=== PATIENT | female | born 1960 | race Caucasian/White ===

== ENCOUNTER 2018-01-24 07:25 | Inpatient (IN) | payer OTHER ==
[~2018-01-24] VITALS: Ht 167.6 cm; Wt 95.7 kg
[~2018-01-24 07:25] MED LIST: LEVO125T PO; LEVO75TA7 PO; LIP10 PO; LORA-258 PO; MELO15TA13 PO; OLAN10TA3 PO; VILA10TA PO; VILA20TA PO
[2018-01-24] MEDS ORDERED: CELECOXIB 200 MG CAPSULE ONE (07:37)
[2018-01-24] MEDS ORDERED: GABAPENTIN 300 MG CAPSULE ONE (07:37)
[2018-01-24] MEDS ORDERED: ACETAMINOPHEN 500 MG TABLET ONE (07:39)
[2018-01-24] MEDS ORDERED: oxyCODONE HCL 10 MG TAB.ER.12H PO ONE ×2 (07:40→07:45)
[2018-01-24] MEDS ORDERED: CELECOXIB 200 MG CAPSULE PO ONE (07:45)
[2018-01-24] MEDS ORDERED: COMMUNICATION ORDER XX ONE (07:45)
[2018-01-24] MEDS ORDERED: GABAPENTIN 300 MG CAPSULE PO ONE (07:45)
[2018-01-24] MEDS ORDERED: CEFAZOLIN SOD 1 GM in D5W 50 ML IV ONE (07:45)
[2018-01-24] MEDS ORDERED: NACL 0.9% 1,000 ML IV ONE (07:45)
[2018-01-24] MEDS ORDERED: TRANEXAMIC ACID 650 MG TABLET PO ONE (07:45)
[2018-01-24] MEDS ORDERED: VANCOMYCIN HCL 1,000 MG in NS 250 ML IV ONE (07:45)
[2018-01-24] MEDS ORDERED: ACETAMINOPHEN 500 MG TABLET PO ONE (07:45)
[2018-01-24] MEDS ORDERED: MUPIROCIN 2% TOPICAL OINTMENT 22 GM TP PRN (07:45)
[2018-01-24] MEDS ORDERED: TRANEXAMIC ACID 650 MG TABLET ONE (07:47)
[2018-01-24] MEDS ORDERED: VILA20TA PO (08:31)
[2018-01-24] MEDS ORDERED: MUPI1OIN4 (08:31)
[2018-01-24] MEDS ORDERED: POLYMYXIN 500,000/BACIT.10,000 UNITS in NS IRR 1 L IR ONE (09:17)
[2018-01-24] MEDS ORDERED: NS 100 ML BAG IV ONE (09:40)
[2018-01-24] MEDS ORDERED: MORPHINE SULFATE 10MG/10ML PF AMP EP ONE (09:40)
[2018-01-24] MEDS ORDERED: KETOROLAC TROMETHAMINE 30 MG VIAL IVP ONE (09:40)
[2018-01-24] MEDS ORDERED: PROPOFOL 200MG/ 20ML VIAL (DIPRIVAN) IV ONE (09:40)
[2018-01-24] MEDS ORDERED: VANCOMYCIN HCL 1000 MG/VIAL IV ONE (09:40)
[2018-01-24] MEDS ORDERED: TRANEXAMIC ACID 1,000 MG/10 ML VIAL IV ONE (09:40)
[2018-01-24] MEDS ORDERED: LR 1,000 ML IV.SOLN IV ONE (09:40)
[2018-01-24] MEDS ORDERED: MIDAZOLAM HCL 5 MG/5 ML VIAL IVP ONE (09:40)
[2018-01-24] MEDS ORDERED: EPINEPHrine 1 MG/ML AMP IV ONE (09:40)
[2018-01-24] MEDS ORDERED: ROPIVACAINE 0.2% 550 ML INJ SCH ×2 (10:20→11:33)
[2018-01-24] MEDS ORDERED: KETOROLAC TROMETHAMINE 30 MG VIAL IVP PRN (10:30)
[2018-01-24] MEDS ORDERED: MORPHINE SULFATE 10MG/10ML PF AMP SP SCH (10:30)
[2018-01-24] MEDS ORDERED: OXYCODONE/ACETAMINOPHEN *10*mg/325 mg TABLET PO PRN (10:30)
[2018-01-24] MEDS ORDERED: fentaNYL CITRATE/PF 100 MCG/2 ML AMP IVP PRN ×2 (10:30)
[2018-01-24] MEDS ORDERED: NALOXONE HCL 0.4 MG/ML AMP (NARCAN) IVP PRN ×2 (10:30)
[2018-01-24] MEDS ORDERED: NALBUPHINE HCL 10 MG/ML AMP IVP PRN ×2 (10:30)
[2018-01-24] MEDS ORDERED: KETOROLAC TROMETHAMINE 60 MG/2 ML VIAL IM PRN (10:30)
[2018-01-24] MEDS ORDERED: ONDANSETRON HCL 4 MG/2 ML VIAL IVP PRN ×4 (10:30→11:45)
[2018-01-24] MEDS ORDERED: SENNOSIDES 8.6 MG TABLET PO PRN (11:45)
[2018-01-24] MEDS ORDERED: KETOROLAC TROMETHAMINE 15 MG VIAL IVP PRN (11:45)
[2018-01-24] MEDS ORDERED: PROMETHAZINE HCL 25 MG/ML AMP IVP PRN (11:45)
[2018-01-24] MEDS ORDERED: LORazepam 1 MG TABLET PO PRN (11:45)
[2018-01-24 13:00] VITALS: BP_SYST 102
[2018-01-24] MEDS: D5LR 1,000 ML IV SCH ×2 (13:00→20:49)
[2018-01-24 15:45] VITALS: BP_SYST 126
[2018-01-24] MEDS: ACETAMINOPHEN 500 MG TABLET PO SCH ×2 (15:51→20:45)
[2018-01-24] MEDS ORDERED: NON-FORMULARY MEDICATION (Vilazodone Hydrochloride (Viibryd) 40 MG) PO SCH (17:00)
[2018-01-24 20:00] VITALS: BP_SYST 127
[2018-01-24] MEDS: MUPIROCIN 2% TOPICAL OINTMENT 22 GM NS SCH (20:43)
[2018-01-24] MEDS: ATORVASTATIN 10 MG TABLET PO SCH (20:44)
[2018-01-24] MEDS: GABAPENTIN 300 MG CAPSULE PO SCH (20:45)
[2018-01-24] MEDS: VANCOMYCIN HCL 1 GM/NS PREMIX 250 ML IV SCH (20:46)
[2018-01-24] MEDS: CELECOXIB 200 MG CAPSULE PO SCH (20:46)
[2018-01-24] MEDS: VIIBRYD 40 MG PO SCH (20:48)
[2018-01-24] MEDS ORDERED: MUPIROCIN NASAL 2% OINT. 1 GM NS SCH (21:00)
[2018-01-24] MEDS ORDERED: VILAZODONE HYDROCHLORIDE PO SCH (21:00)
[2018-01-24] MEDS ORDERED: OLANZapine 10 MG TABLET PO SCH (21:00)
[2018-01-24 21:13] VITALS: BP_SYST 126
[2018-01-25 00:30] VITALS: BP_SYST 118
[2018-01-25] MEDS: LEVOTHYROXINE SODIUM 0.075 MG TABLET PO SCH (06:03)
[2018-01-25 06:43] LABS: BASOPHILS % (AUTO) 0.4 % (0.0-2.0); EOSINOPHILS # (AUTO) 0.1 K/uL (0.0-0.4); EOSINOPHILS % (AUTO) 0.6 % (0.0-4.0); HEMATOCRIT 37.5 % (36-48); HEMOGLOBIN 12.9 g/dL (12.0-16.0); LYMPHOCYTES # (AUTO) 1.3 K/uL (1.0-5.5); LYMPHOCYTES % (AUTO) 11.7 % (20.5-51.5); MEAN CORPUSCULAR HEMOGLOBIN 32 pg (27-31); MEAN CORPUSCULAR HGB CONC 34 % (32-36); MEAN CORPUSCULAR VOLUME 92 fL (79.0-98.0); MONOCYTES % (AUTO) 9.3 % (1.7-9.3); NEUTROPHILS # (AUTO) 8.8 K/uL (1.8-7.7); PLATELET COUNT (AUTO) 266 K/uL (130-430); RED BLOOD CELL COUNT(AUTO) 4.09 MIL/uL (4.2-6.2); RED CELL DISTRIBUTION WIDTH 13.4 % (9.0-15.0); WHITE BLOOD COUNT (AUTO) 11.2 K/uL (4.8-10.8)
[2018-01-25 06:48] LABS: CALCIUM 8.9 mg/dL (8.4-11.0); CREATININE 0.77 mg/dL (0.55-1.30); POTASSIUM 4.5 mmol/L (3.5-5.1)
[2018-01-25] MEDS ORDERED: LEVOTHYROXINE SODIUM 0.125 MG TABLET PO SCH (07:00)
[2018-01-25 08:00] VITALS: BP_SYST 103
[2018-01-25] MEDS ORDERED: ATORVASTATIN 10 MG TABLET PO SCH (09:00)
[2018-01-25] MEDS: D5LR 1,000 ML IV SCH (09:00)
[2018-01-25] MEDS: VANCOMYCIN HCL 1 GM/NS PREMIX 250 ML IV SCH (09:01)
[2018-01-25] MEDS: MUPIROCIN 2% TOPICAL OINTMENT 22 GM NS SCH ×2 (09:02→21:08)
[2018-01-25] MEDS: ACETAMINOPHEN 500 MG TABLET PO SCH ×3 (09:03→21:07)
[2018-01-25] MEDS: CELECOXIB 200 MG CAPSULE PO SCH ×2 (09:03→21:08)
[2018-01-25] MEDS: RIVAROXABAN 10 MG TABLET PO SCH (09:52)
[2018-01-25] MEDS: oxyCODONE HCL 5 MG TABLET PO PRN (11:56)
[2018-01-25 12:55] VITALS: BP_SYST 115
[2018-01-25] MEDS: MORPHINE 4 MG/ML INJ. SYRINGE IVP PRN ×2 (13:07→22:24)
[2018-01-25 17:03] VITALS: BP_SYST 107
[2018-01-25 20:00] VITALS: BP_SYST 123
[2018-01-25] MEDS: VIIBRYD 40 MG PO SCH (21:07)
[2018-01-25] MEDS: ATORVASTATIN 10 MG TABLET PO SCH (21:07)
[2018-01-25] MEDS: GABAPENTIN 300 MG CAPSULE PO SCH (21:09)
[2018-01-26] MEDS: oxyCODONE HCL 5 MG TABLET PO PRN ×3 (01:02→12:59)
[2018-01-26 01:03] VITALS: BP_SYST 124
[2018-01-26] MEDS: D5LR 1,000 ML IV SCH (03:33)
[2018-01-26] MEDS: LEVOTHYROXINE SODIUM 0.075 MG TABLET PO SCH (06:06)
[2018-01-26 07:01] LABS: CALCIUM 9.2 mg/dL (8.4-11.0); CREATININE 0.78 mg/dL (0.55-1.30); EOSINOPHILS # (AUTO) 0.1 K/uL (0.0-0.4); EOSINOPHILS % (AUTO) 1.4 % (0.0-4.0); MEAN CORPUSCULAR VOLUME 90 fL (79.0-98.0); MONOCYTES # (AUTO) 0.8 K/uL (0.0-1.0); POTASSIUM 4.3 mmol/L (3.5-5.1)
[2018-01-26 08:10] VITALS: BP_SYST 132
[2018-01-26 08:17] LABS: BASOPHILS % (AUTO) 0.4 % (0.0-2.0); HEMATOCRIT 33.5 % (36-48); HEMOGLOBIN 11.5 g/dL (12.0-16.0); LYMPHOCYTES # (AUTO) 1.4 K/uL (1.0-5.5); LYMPHOCYTES % (AUTO) 15.1 % (20.5-51.5); MEAN CORPUSCULAR HEMOGLOBIN 31 pg (27-31); MEAN CORPUSCULAR HGB CONC 34 % (32-36); MONOCYTES % (AUTO) 8.9 % (1.7-9.3); NEUTROPHILS # (AUTO) 6.7 K/uL (1.8-7.7); NEUTROPHILS % (AUTO) 74.2 % (40.0-70.0); PLATELET COUNT (AUTO) 245 K/uL (130-430); RED BLOOD CELL COUNT(AUTO) 3.71 MIL/uL (4.2-6.2); RED CELL DISTRIBUTION WIDTH 13.5 % (9.0-15.0)
[2018-01-26] MEDS: CELECOXIB 200 MG CAPSULE PO SCH (08:19)
[2018-01-26] MEDS: ACETAMINOPHEN 500 MG TABLET PO SCH (08:20)
[2018-01-26] MEDS: MUPIROCIN 2% TOPICAL OINTMENT 22 GM NS SCH (08:21)
[2018-01-26] MEDS: MORPHINE 4 MG/ML INJ. SYRINGE IVP PRN (09:27)
[2018-01-26] MEDS: RIVAROXABAN 10 MG TABLET PO SCH (09:27)
[2018-01-26 11:24] VITALS: BP_SYST 111
[2018-01-26 12:49] VITALS: BP_SYST 111
== END 2018-01-26 15:25 | disposition home health service (06) | DRG 470 ==
LOC: SMU 07:25 → STU 12:57
PROVIDERS: ADMIT Orthopaedic Surgery; ATTEND Orthopaedic Surgery
PROC: 0SRD0J9 Replacement of Left Knee Joint with Synthetic Substitute, Cemented, Open Approach (ICD-10-PCS; principal; 2018-01-24 09:45)
DX: M17.12 Unilateral primary osteoarthritis, left knee (principal); Z88.8 Allergy status to other drugs, medicaments and biological substances
CPT/HCPCS: 36415; 80048; 85025; 87081; 88305; 88311; 94010; 97039; 97110-GP; 97116-GP; 97530-GP; C1713; C1776; J0171; J0690; J1885; J2250; J2270; J2274; J2405; J2704; J2795; J3370; J3490; J7050; J7060; J7120

== ENCOUNTER 2018-09-05 07:47 | Inpatient (IN) | payer OTHER ==
[~2018-09-05] VITALS: Ht 165.1 cm; Wt 99.0 kg
[~2018-09-05 07:47] MED LIST changes: -LEVO125T PO; -MELO15TA13 PO; +MUPI1OIN4; -OLAN10TA3 PO; -VILA10TA PO
[2018-09-05] MEDS ORDERED: GABAPENTIN 300 MG CAPSULE PO ONE (08:00)
[2018-09-05] MEDS ORDERED: ACETAMINOPHEN 500 MG TABLET PO ONE (08:00)
[2018-09-05] MEDS ORDERED: NACL 0.9% 1,000 ML IV ONE (08:00)
[2018-09-05] MEDS ORDERED: CELECOXIB 200 MG CAPSULE PO ONE (08:00)
[2018-09-05] MEDS ORDERED: oxyCODONE HCL 10 MG TAB.ER.12H PO ONE ×2 (08:00→08:31)
[2018-09-05] MEDS ORDERED: TRANEXAMIC ACID 650 MG TABLET PO ONE (08:00)
[2018-09-05] MEDS ORDERED: CEFAZOLIN SOD 2 GM in D5W 50 ML IV ONE (08:00)
[2018-09-05] MEDS ORDERED: CELECOXIB 200 MG CAPSULE ONE (08:31)
[2018-09-05] MEDS ORDERED: ACETAMINOPHEN 500 MG TABLET ONE (08:31)
[2018-09-05] MEDS ORDERED: TRANEXAMIC ACID 650 MG TABLET ONE (08:32)
[2018-09-05] MEDS ORDERED: GABAPENTIN 300 MG CAPSULE ONE (08:32)
[2018-09-05] MEDS ORDERED: POLYMYXIN 500,000/BACIT.10,000 UNITS in NS IRR 1 L IR ONE (09:37)
[2018-09-05] MEDS ORDERED: KETOROLAC TROMETHAMINE 30 MG VIAL IVP ONE (09:45)
[2018-09-05] MEDS ORDERED: ROPIVACAINE HCL/PF 5 MG/ML 0.5% 30 ML VIAL INJ ONE (09:45)
[2018-09-05] MEDS ORDERED: LR 1,000 ML IV.SOLN IV ONE (09:45)
[2018-09-05] MEDS ORDERED: ePHEDrine sulfate 50 MG/ML VIAL IVP ONE (09:45)
[2018-09-05] MEDS ORDERED: NS 50 ML BAG IV ONE (09:45)
[2018-09-05] MEDS ORDERED: CEFAZOLIN 2 GM IVPB PREMIX 50 ML IV ONE (09:45)
[2018-09-05] MEDS ORDERED: BUPIVACAINE /DEX PF 0.75% SPINAL 2 ML AMP INJ ONE (09:45)
[2018-09-05] MEDS ORDERED: TRANEXAMIC ACID 1,000 MG/10 ML VIAL IV ONE (09:45)
[2018-09-05] MEDS ORDERED: NS 1000 ML IV.SOLN IV ONE (09:45)
[2018-09-05] MEDS ORDERED: PROPOFOL 200MG/ 20ML VIAL (DIPRIVAN) IV ONE (09:45)
[2018-09-05] MEDS ORDERED: ROPIVACAINE 0.2% (NAROPIN) PF SOLUTION 100 ML BOTTLE EP ONE (09:45)
[2018-09-05] MEDS ORDERED: MIDAZOLAM HCL 5 MG/5 ML VIAL IVP ONE (09:45)
[2018-09-05] MEDS ORDERED: MORPHINE SULFATE 10MG/10ML PF AMP EP ONE (09:45)
[2018-09-05] MEDS ORDERED: ONDANSETRON HCL 4 MG/2 ML VIAL IVP ONE (09:45)
[2018-09-05] MEDS ORDERED: MORPHINE SULFATE 10MG/10ML PF AMP SP SCH (10:00)
[2018-09-05] MEDS ORDERED: ROPIVACAINE 0.2% 550 ML INJ SCH (11:56)
[2018-09-05] MEDS ORDERED: KETOROLAC TROMETHAMINE 30 MG VIAL IVP PRN (12:00)
[2018-09-05] MEDS ORDERED: SENNOSIDES 8.6 MG TABLET PO PRN (12:00)
[2018-09-05] MEDS ORDERED: KETOROLAC TROMETHAMINE 15 MG VIAL IVP PRN (12:00)
[2018-09-05] MEDS ORDERED: MEPERIDINE HCL/PF 25 MG/ML DISP.SYRIN IVP PRN ×2 (12:00)
[2018-09-05] MEDS ORDERED: NALOXONE HCL 1 MG in NACL 0.9% 1,000 ML IV PRN ×4 (12:00)
[2018-09-05] MEDS ORDERED: HYDROmorphone 2 MG/ML VIAL IVP PRN ×2 (12:00)
[2018-09-05] MEDS ORDERED: ONDANSETRON HCL 4 MG/2 ML VIAL IVP PRN ×2 (12:00)
[2018-09-05] MEDS ORDERED: NALOXONE HCL 0.4 MG/ML AMP (NARCAN) IVP PRN ×3 (12:00)
[2018-09-05] MEDS ORDERED: LORazepam 1 MG TABLET PO PRN (12:00)
[2018-09-05] MEDS ORDERED: HYDROmorphone 1 MG INJ. 1 MG/ML AMPUL IVP PRN (12:00)
[2018-09-05] MEDS ORDERED: PROMETHAZINE HCL 25 MG/ML AMP IVP PRN (12:00)
[2018-09-05] MEDS ORDERED: LR 1,000 ML IV SCH (12:37)
[2018-09-05] MEDS ORDERED: ROPIVACAINE 0.2% 100 ML INJ SCH (12:37)
[2018-09-05] MEDS ORDERED: HYDROcodone/ACETAMIN 10-325 MG TAB PO PRN ×2 (12:45)
[2018-09-05] MEDS ORDERED: KETOROLAC TROMETHAMINE 60 MG/2 ML VIAL IM PRN (12:45)
[2018-09-05 13:50] VITALS: BP_SYST 113
[2018-09-05] MEDS: CEFAZOLIN 1 GM IVPB PREMIX 50 ML IV SCH ×2 (15:45→22:39)
[2018-09-05] MEDS: ACETAMINOPHEN 500 MG TABLET PO SCH ×2 (15:48→21:26)
[2018-09-05] MEDS: D5LR 1,000 ML IV SCH ×2 (16:08→21:56)
[2018-09-05 17:00] VITALS: BP_SYST 132
[2018-09-05] MEDS: RIVAROXABAN 10 MG TABLET PO SCH (17:32)
[2018-09-05 20:00] VITALS: BP_SYST 114
[2018-09-05] MEDS ORDERED: MUPIROCIN NASAL 2% OINT. NS SCH (21:00)
[2018-09-05] MEDS ORDERED: NON-FORMULARY MEDICATION (Vilazodone Hydrochloride (Viibryd) 40 MG) PO SCH (21:00)
[2018-09-05] MEDS: VILAZODONE 40 MG PO SCH (21:25)
[2018-09-05] MEDS: GABAPENTIN 300 MG CAPSULE PO SCH (21:26)
[2018-09-05] MEDS: CELECOXIB 200 MG CAPSULE PO SCH (21:26)
[2018-09-05 23:26] LABS: HEMATOCRIT 36.3 % (36-48); HEMOGLOBIN 12.1 g/dL (12.0-16.0)
[2018-09-06 00:38] VITALS: BP_SYST 107
[2018-09-06] MEDS: CEFAZOLIN 1 GM IVPB PREMIX 50 ML IV SCH (04:19)
[2018-09-06 07:11] LABS: CALCIUM 8.2 mg/dL (8.4-11.0); POTASSIUM 3.6 mmol/L (3.5-5.1)
[2018-09-06 07:14] LABS: BASOPHILS % (AUTO) 0.1 % (0.0-2.0); EOSINOPHILS # (AUTO) 0.1 K/uL (0.0-0.4); EOSINOPHILS % (AUTO) 1.5 % (0.0-4.0); HEMATOCRIT 33.7 % (36-48); LYMPHOCYTES # (AUTO) 1.2 K/uL (1.0-5.5); MEAN CORPUSCULAR HEMOGLOBIN 30 pg (27-31); MEAN CORPUSCULAR HGB CONC 33 % (32-36); MEAN CORPUSCULAR VOLUME 92 fL (79.0-98.0); MONOCYTES # (AUTO) 0.9 K/uL (0.0-1.0); MONOCYTES % (AUTO) 11.2 % (1.7-9.3); NEUTROPHILS # (AUTO) 6.1 K/uL (1.8-7.7); NEUTROPHILS % (AUTO) 72.2 % (40.0-70.0); PLATELET COUNT (AUTO) 200 K/uL (130-430); RED BLOOD CELL COUNT(AUTO) 3.67 MIL/uL (4.2-6.2); RED CELL DISTRIBUTION WIDTH 12.8 % (9.0-15.0); WHITE BLOOD COUNT (AUTO) 8.3 K/uL (4.8-10.8)
[2018-09-06 08:00] VITALS: BP_SYST 93
[2018-09-06] MEDS: oxyCODONE HCL 5 MG TABLET PO PRN ×5 (08:32→23:55)
[2018-09-06] MEDS: CELECOXIB 200 MG CAPSULE PO SCH ×2 (08:38→20:11)
[2018-09-06] MEDS: ACETAMINOPHEN 500 MG TABLET PO SCH ×3 (08:38→20:14)
[2018-09-06] MEDS ORDERED: LEVOTHYROXINE SODIUM 0.075 MG TABLET PO SCH (09:00)
[2018-09-06] MEDS ORDERED: ATORVASTATIN 10 MG TABLET PO SCH ×2 (09:00→21:00)
[2018-09-06 12:09] VITALS: BP_SYST 99
[2018-09-06 16:25] VITALS: BP_SYST 113
[2018-09-06] MEDS: RIVAROXABAN 10 MG TABLET PO SCH (17:46)
[2018-09-06 19:35] VITALS: BP_SYST 103
[2018-09-06] MEDS: GABAPENTIN 300 MG CAPSULE PO SCH (20:09)
[2018-09-06] MEDS: VILAZODONE 40 MG PO SCH (20:12)
[2018-09-06 23:33] VITALS: BP_SYST 98
[2018-09-07] MEDS: MORPHINE 4 MG/ML INJ. SYRINGE IVP PRN ×2 (03:11→08:31)
[2018-09-07] MEDS: oxyCODONE HCL 5 MG TABLET PO PRN ×3 (04:00→13:10)
[2018-09-07 04:51] LABS: CALCIUM 8.5 mg/dL (8.4-11.0); CREATININE 0.89 mg/dL (0.55-1.30); POTASSIUM 3.5 mmol/L (3.5-5.1)
[2018-09-07 05:35] LABS: BASOPHILS % (AUTO) 0.2 % (0.0-2.0); EOSINOPHILS # (AUTO) 0.1 K/uL (0.0-0.4); EOSINOPHILS % (AUTO) 1.3 % (0.0-4.0); HEMATOCRIT 32.9 % (36-48); HEMOGLOBIN 10.6 g/dL (12.0-16.0); LYMPHOCYTES # (AUTO) 1.1 K/uL (1.0-5.5); LYMPHOCYTES % (AUTO) 11.9 % (20.5-51.5); MEAN CORPUSCULAR HEMOGLOBIN 30 pg (27-31); MEAN CORPUSCULAR HGB CONC 32 % (32-36); MEAN CORPUSCULAR VOLUME 92 fL (79.0-98.0); MONOCYTES # (AUTO) 0.8 K/uL (0.0-1.0); MONOCYTES % (AUTO) 8.7 % (1.7-9.3); NEUTROPHILS # (AUTO) 7.4 K/uL (1.8-7.7); NEUTROPHILS % (AUTO) 77.9 % (40.0-70.0); PLATELET COUNT (AUTO) 200 K/uL (130-430); RED BLOOD CELL COUNT(AUTO) 3.58 MIL/uL (4.2-6.2); RED CELL DISTRIBUTION WIDTH 12.7 % (9.0-15.0); WHITE BLOOD COUNT (AUTO) 9.4 K/uL (4.8-10.8)
[2018-09-07] MEDS ORDERED: LEVOTHYROXINE SODIUM 0.075 MG TABLET PO SCH (07:00)
[2018-09-07] MEDS: CELECOXIB 200 MG CAPSULE PO SCH (08:31)
[2018-09-07] MEDS: ACETAMINOPHEN 500 MG TABLET PO SCH (09:00)
[2018-09-07 09:08] VITALS: BP_SYST 124
[2018-09-07 10:53] VITALS: BP_SYST 129
[2018-09-07] MEDS ORDERED: HYDR-551 PO (11:05)
[2018-09-07] MEDS ORDERED: RIVA10TA PO (11:06)
[2018-09-07 12:35] VITALS: BP_SYST 116
== END 2018-09-07 13:20 | disposition home health service (06) | DRG 470 ==
LOC: SMU 07:47 → STU 18:09 → SMU 09-07 07:48
PROVIDERS: ADMIT Orthopaedic Surgery; ATTEND Orthopaedic Surgery
PROC: 0SRC0J9 Replacement of Right Knee Joint with Synthetic Substitute, Cemented, Open Approach (ICD-10-PCS; principal; 2018-09-05 09:30)
DX: M17.11 Unilateral primary osteoarthritis, right knee (principal); Z96.652 Presence of left artificial knee joint; E03.9 Hypothyroidism, unspecified; I10 Essential (primary) hypertension; E66.01 Morbid (severe) obesity due to excess calories; F32.9 Major depressive disorder, single episode, unspecified; E11.69 Type 2 diabetes mellitus with other specified complication; E78.5 Hyperlipidemia, unspecified; Z90.49 Acquired absence of other specified parts of digestive tract; Z88.8 Allergy status to other drugs, medicaments and biological substances; Z68.36 Body mass index [BMI] 36.0-36.9, adult
CPT/HCPCS: 36415; 80048; 85018-TC; 85025; 87081; 88305; 88311; 97039; 97110-GP; 97116-GP; 97530-GP; C1713; C1776; G0378; J0690; J1885; J2250; J2270; J2274; J2310; J2405; J2704; J2795; J3490; J7030; J7060; J7120

== ENCOUNTER 2019-02-15 13:35 | Outpatient (CLI) | payer OTHER ==
[~2019-02-15 13:35] MED LIST changes: +HYDR-4273 PO; +RIVA10TA PO
== END 2019-02-15 21:06 | disposition home or self-care (01) ==
LOC: SMA 13:35
PROVIDERS: ATTEND General Practice
DX: Z12.31 Encounter for screening mammogram for malignant neoplasm of breast (principal)
CPT/HCPCS: 77067

== ENCOUNTER 2019-08-14 10:38 | Outpatient (CLI) | payer OTHER | END 2019-08-14 17:49 | disposition home or self-care (01) | LOC: SUS 10:38 | PROVIDERS: ATTEND General Practice | DX: E04.1 Nontoxic single thyroid nodule (principal) | CPT/HCPCS: 76536-TC ==